=== PATIENT | female | born 1990 | race Caucasian/White ===

== ENCOUNTER 2021-06-18 18:27 | Emergency (ER) | payer SELFPAY ==
[~2021-06-18] VITALS: Ht 160 cm; Wt 49.9 kg
--- NOTE | 2021-06-18 18:48 | NUR ---
Dr Mcguire at bedside, MSE in progress.
[2021-06-18] MEDS ORDERED: SPIR50TA5 PO (18:50)
[2021-06-18] MEDS ORDERED: ONDANSETRON 4 MG/2 ML VIAL ONE (19:11)
[2021-06-18] MEDS ORDERED: IV NORMAL SALINE 1000 ML BAG IV ONE (19:15)
[2021-06-18] MEDS ORDERED: ONDANSETRON 4 MG/2 ML VIAL IV ONE (19:15)
[2021-06-18 19:20] LABS: HEMATOCRIT 40.4 % (31.2-41.9); MEAN CORPUSCULAR VOLUME 87.1 fL (75.5-95.3); PLATELET COUNT (AUTO) 203 K/uL (179-408)
[2021-06-18 19:37] LABS: CREATININE 0.8 mg/dL (0.6-1.3); POTASSIUM 3.5 mmol/L (3.5-5.1)
[2021-06-18 19:43] LABS: BILIRUBIN,DIRECT 0.2 mg/dL (0.0-0.2); BILIRUBIN,TOTAL 0.6 mg/dL (0.2-1.0); TOTAL PROTEIN, SERUM 6.7 g/dL (6.4-8.2)
[2021-06-18] MEDS ORDERED: DICY20TA11 PO (20:14)
[2021-06-18] MEDS ORDERED: ONDA4TAB5 PO (20:14)
--- NOTE | 2021-06-18 20:22 | NUR ---
Patient discharged to home in stable condition. Written and verbal after care instructions given. Patient verbalizes understanding of instructions. Stressed follow up or return to ER for worsening s/s. pt ambulated with steady gait. denies pain. no SOB. no chest pain. AOx4
[2021-06-18 20:23] VITALS: BP 108/71
== END 2021-06-18 20:24 | disposition home or self-care (01) ==
LOC: ER 18:31
DX: R11.2 Nausea with vomiting, unspecified (principal); R19.7 Diarrhea, unspecified; R10.9 Unspecified abdominal pain; Z32.00 Encounter for pregnancy test, result unknown
CPT/HCPCS: 36415; 80048; 80076; 83690; 84702; 85025; 96361; 96374; 99285; J2405; J7040; A4663

== ENCOUNTER 2021-07-13 09:01 | Emergency (ER) | payer SELFPAY ==
[~2021-07-13] VITALS: Ht 160 cm; Wt 49.9 kg
[~2021-07-13 09:01] MED LIST: DICY20TA11 PO; ONDA4TAB5 PO; SPIR50TA5 PO
[2021-07-13] MEDS ORDERED: IV NORMAL SALINE 1000 ML BAG IV ONE (09:30)
[2021-07-13] MEDS ORDERED: ONDANSETRON 4 MG/2 ML VIAL IV ONE (09:30)
[2021-07-13] MEDS ORDERED: MAG HYDROX/AL HYDROX/SIMETH 30 ML LIQUID UDC PO ONE (09:30)
[2021-07-13] MEDS ORDERED: LIDOCAINE VISCUS 2% 15 ML UDC MM ONE (09:30)
[2021-07-13] MEDS ORDERED: FAMOTIDINE. 20 MG/2 ML VIAL IV ONE ×2 (09:30→09:38)
[2021-07-13] MEDS ORDERED: ONDANSETRON 4 MG/2 ML VIAL ONE (09:36)
[2021-07-13] MEDS ORDERED: LIDOCAINE VISCUS 2% 15 ML UDC ONE (09:36)
[2021-07-13] MEDS ORDERED: MAG HYDROX/AL HYDROX/SIMETH 30 ML LIQUID UDC ONE (09:37)
[2021-07-13 09:43] LABS: HEMATOCRIT 41.6 % (31.2-41.9); MEAN CORPUSCULAR HEMOGLOBIN 29.8 uug (24.7-32.8); MEAN CORPUSCULAR VOLUME 86.5 fL (75.5-95.3); PLATELET COUNT (AUTO) 180 K/uL (179-408)
[2021-07-13 09:59] LABS: CARBON DIOXIDE 29 mmol/L (21-32); CHLORIDE 105 mmol/L (98-107); CREATININE 0.7 mg/dL (0.6-1.3); GLUCOSE 89 mg/dL (74-106); POTASSIUM 3.9 mmol/L (3.5-5.1); UREA NITROGEN, BLOOD 6 mg/dL (7-18)
--- NOTE | 2021-07-13 10:02 | NUR ---
Ferny morley in EDM - 07/13/21 at 1004 by MILLER PORTABLE XRAY DONE ON LT FOOT.
[2021-07-13 10:03] LABS: ALANINE AMINOTRANSFERASE 23 U/L (14-59); ALKALINE PHOSPHATASE 50 U/L (50-136); ASPARTATE AMINOTRANSFERASE 32 U/L (15-37); BILIRUBIN,DIRECT < 0.1 mg/dL (0.0-0.2); BILIRUBIN,TOTAL 0.3 mg/dL (0.2-1.0); LIPASE 112 U/L (73-393); TOTAL PROTEIN, SERUM 6.6 g/dL (6.4-8.2)
[2021-07-13 10:29] LABS: *BILIRUBIN,URIN NEGATIVE (NEGATIVE); *BLOOD, URINE NEGATIVE (NEGATIVE); *CLARITY,URINE CLEAR (CLEAR); *COLOR,URINE YELLOW (YELLOW); *KETONES,URINE NEGATIVE (NEGATIVE); *UROBILINOGEN,URINE 0.2 E.U./dl (NORMAL); LEUKOCYTE ESTERASE ,URINE NEGATIVE (NEGATIVE); NITRITE, URINE NEGATIVE (NEGATIVE); PH,URINE 8.5 (5.0-8.0); UGLUCOSE NEGATIVE (NEGATIVE)
[2021-07-13] MEDS ORDERED: FAMO-132 PO (10:32)
[2021-07-13] MEDS ORDERED: ONDA4TAB5 PO (10:32)
--- NOTE | 2021-07-13 10:38 | NUR ---
chaperoned the us being done. pt tolerated well.
[2021-07-13 11:44] VITALS: BP 110/69
--- NOTE | 2021-07-13 11:44 | NUR ---
Patient discharged to home in stable condition. Written and verbal after care instructions given. Patient verbalizes understanding of instructions. Stressed follow up or return to ER for worsening s/s.pt says feels better, walks in steady gait.
== END 2021-07-13 11:45 | disposition home or self-care (01) ==
LOC: ER 09:01
DX: U07.1 COVID-19 (principal); R11.2 Nausea with vomiting, unspecified; R10.13 Epigastric pain
CPT/HCPCS: 36415; 71045; 76705; 76856; 80048; 80076; 81003; 83690; 84702; 85025; 96361; 96374; 96375; 99285; J2405; J3490; J7040; A4663